=== PATIENT | female | born 1965 | race Caucasian/White ===

== ENCOUNTER 2020-03-21 09:53 | Outpatient (CLI) | payer OTHER, SELFPAY ==
[2020-03-21 10:31] LABS: Microalbumin Urine Random 8.1 mg/L
[2020-03-21 11:20] LABS: Alanine Aminotransferase 36 U/L (14-59); Albumin Level 3.6 g/dL (3.4-5.0); Alkaline Phosphatase 90 U/L (46-116); Anion Gap 15.5 mmol/L (7-16); Aspartate Amino Transferase 21 U/L (15-37); Bilirubin,Total 0.2 mg/dL (0.00-1.00); Blood Urea Nitrogen 14 mg/dL (7-18); Calcium 8.9 mg/dL (8.5-10.1); Carbon Dioxide 26 mmol/L (21-32); Chloride 101 mmol/L (98-108); Cholesterol 184 mg/dL (0-200); Estimated Glomerular Filt Rate > 60; Free T4 Free Thyroxine 0.98 ng/dL (0.76-1.46); Glucose 292 mg/dL (70-99); HDL Direct 34 mg/dL (40-60); LDL Cholesterol Calculated 76 mg/dL (<130); Osmolality Calculated 297 mOsm/kg (285-295); Potassium 4.5 mmol/L (3.5-5.1); Sodium 138 mmol/L (136-145); Thyroid Stimulating Hormone 2.42 uIU/mL (0.36-3.74); Total Protein 7.2 g/dL (6.4-8.2); Triglycerides 368 mg/dL (0-150)
== END 2020-03-21 09:54 | disposition home or self-care (01) ==
LOC: CHSLAB 09:56
PROVIDERS: PCP Internal Medicine; Visit Provider Physician Assistant
DX: E04.2 Nontoxic multinodular goiter (principal); E78.5 Hyperlipidemia, unspecified; E11.65 Type 2 diabetes mellitus with hyperglycemia
CPT/HCPCS: 36415; 80053; 80061; 82043; 84439; 84443

== ENCOUNTER 2020-07-28 07:48 | Outpatient (CLI) | payer OTHER, SELFPAY ==
[2020-07-28 08:21] LABS: Basophils Absolute Auto 0.03 K/mm3 (0.00-0.10); Basophils Percent Auto 0.4 % (0.0-1.0); Eosinophils Percent Auto 1.2 % (1.0-6.0); Hematocrit 45.3 % (35.0-49.0); Hemoglobin 14.3 g/dL (12.0-15.0); Immature Granulocyte Absolute 0.04 K/mm3 (0.00-0.00); Immature Granulocyte Percent A 0.5 % (0.0-0.0); Lymphocytes Absolute Auto 2.57 K/mm3 (1.10-4.50); Lymphocytes Percent Auto 30.7 % (18.0-42.0); Mean Corpuscular HGB Conc 31.6 g/dL (32.0-36.0); Mean Corpuscular Hemoglobin 25.2 pg (27.0-31.0); Mean Corpuscular Volume 79.8 fL (78.0-102.0); Mean Platelet Volume 10.3 fl (9.2-11.8); Monocytes Absolute Auto 0.45 K/mm3 (0.10-0.90); Monocytes Percent Auto 5.4 % (2.0-11.0); Neutrophils Absolute Auto 5.2 K/mm3 (1.7-7.2); Neutrophils Percent Auto 61.8 % (50.0-70.0); Platelet Count Result 262 K/mm3 (150-420); Red Blood Count 5.68 M/mm3 (4.20-5.40); Red Cell Distribution Width 14.9 % (11.6-14.4); White Blood Count 8.4 K/mm3 (4.8-10.8)
[2020-07-28 09:12] LABS: CRP 1.4 mg/dL (0.0-0.9); Free T4 Free Thyroxine 0.98 ng/dL (0.76-1.46); Thyroid Stimulating Hormone 1.73 uIU/mL (0.36-3.74)
[2020-07-31 04:00] LABS: Methylmalonic Acid 277 nmol/L (87-318)
[2020-07-31 07:44] LABS: Red Blood Cell Folate 800 ng/mL RBC (>280)
== END 2020-07-28 07:49 | disposition home or self-care (01) ==
LOC: CHSLAB 07:49
PROVIDERS: Physician Assistant; PCP Internal Medicine; Visit Provider Internal Medicine
DX: R53.83 Other fatigue (principal); E53.8 Deficiency of other specified B group vitamins; E04.2 Nontoxic multinodular goiter
CPT/HCPCS: 36415; 82747; 83921; 84439; 84443; 84481; 85025; 86140

== ENCOUNTER 2020-09-15 07:10 | Outpatient (CLI) | payer OTHER, SELFPAY ==
--- NOTE | ~2020-09-15 | MM_ITS ---
EXAMINATION: MM screening [facility] BI w silvia HISTORY: Screening mammogram, family history of breast cancer in her sister. TECHNIQUE: Craniocaudal and mediolateral oblique 3-D tomosynthesis images were obtained and synthetic 2-D images were generated. CAD analysis was submitted and interpreted. COMPARISON: 09/14/2019, 09/12/2018, 08/30/2017 BREAST PARENCHYMAL COMPOSITION: There are scattered areas of fibroglandular density. FINDINGS: Stable focal asymmetry is again noted in the upper outer quadrant of the right breast. Ther e is no evidence of suspicious mass, calcification, or architectural distortion to suggest malignancy in either breast. There has been no suspicious interval change. IMPRESSION: 1. No mammographic evidence of malignancy. 2. Recommend routine screening mammography in one year. BI-RADS Category 2: Benign finding(s). Reviewed, dictated and finalized at location A.
== END 2020-09-15 07:11 | disposition home or self-care (01) ==
LOC: CHSIMG 07:12
PROVIDERS: PCP Internal Medicine; Visit Provider Obstetrics & Gynecology
DX: Z12.31 Encounter for screening mammogram for malignant neoplasm of breast (principal)
CPT/HCPCS: 77063; 77067

== ENCOUNTER 2020-10-21 01:18 | Emergency (ER) | payer OTHER, SELFPAY ==
[2020-10-21 01:36] VITALS: BP 143/85; PULSE 97; RESP 18; TEMP 36.8; O2SAT 98
--- NOTE | 2020-10-21 01:36 | ED.BACK ---
HPI - Back Pain/Injury General Chief Complaint: Upper Respiratory Infection Stated Complaint: Headache, nausea Source: patient Mode of arrival: ambulatory Limitations: no limitations History of Present Illness HPI Narrative: this is a 54-year-old female presents with some body aches currently afebrile with no shortness of breath no cough was nauseated currently not nauseated has a mild headache with no neck stiffness no chest pain no shortness of breath no abdominal pain no diarrhea constipation. Recently exposed to a COVID positive patients but approximately 3 days ago had a rapid COVID which was negative. Onset (ago): day(s) Timing: intermittent Similar Symptoms Previously: No Quality: aching Related Data Home Medications Medication Instructions Recorded Confirmed esomeprazole magnesium 40 mg 40 mg PO DAILY 03/16/20 07/18/20 capsule,delayed release dapagliflozin [Farxiga] 10 mg PO DAILY 10/21/20 10/21/20 dulaglutide [Trulicity] 1.5 mg SUBCUT WEEKLY 10/21/20 10/21/20 duloxetine 20 mg PO BID 10/21/20 10/21/20 famotidine 40 mg PO HS 10/21/20 10/21/20 glipizide 10 mg PO BID 10/21/20 10/21/20 Allergies Allergy/AdvReac Type Severity Reaction Status Date / Time iodine Allergy Unknown HIVES Unverified 08/27/14 08:59 Contrast Media Allergy Unknown HIVES/RASH Uncoded 08/27/14 08:59 Review of Systems Review of Systems: All systems reviewed & are unremarkable except as noted in HPI and below PMFSH Past Medical History Medical History (Updated 10/21/20 @ 02:55 by Kimani Nevarez MD) Anxiety Cholecystectomy planned Surgical History Surgical History History of appendectomy Family History Family History Other Diabetes mellitus Family history of chronic obstructive pulmonary disease Family history of congestive heart failure Family history of genitourinary disease Family history of lung disease Family history of mental disorder Social History Social History Smoking status: Never smoker Alcohol intake: never Exam Const: General: no acute distress HENMT: Head: normal to inspection Eyes: Conjunctivae: conjunctivae normal Pupils: Equal, round and reactive pupils present EOM: EOMs intact bilaterally Neck: Neck: normal visual inspection Chest: Chest palpation & inspection: normal inspection of the chest Cardio: Rate: regular rate Rhythm: regular rhythm GI: GI Palp: Yes Soft to palpation : General: Yes no CVA tenderness Urinary Catheter: Urinary Catheter: patent and draining Back/Spine/Pelvis: Back: no CVA tenderness Skin: General skin exam: normal color Rashes: no rashes Psych: Mental Status: mental status grossly normal Course Course Emergency Course: Patient given Toradol and labs reviewed with patient and advised to self isolate. Critical Care Time Critical Care Time Critical Care Time: No Discharge Plan Discharge Clinical Impression: Viral infection Patient Disposition: Home, Self-Care Condition: Stable Instructions: Antibiotic Form, Viral Syndrome (ED) Additional Instructions: drink plenty of fluids, take Tylenol or Motrin for body aches, rest stay home self isolate and follow-up primary care physician if symptoms persist or worsen. Prescriptions: No Action glipizide 10 mg tablet extended release 24hr 10 mg PO BID RF: 0 famotidine 20 mg tablet 40 mg PO HS RF: 0 duloxetine 20 mg capsule,delayed release(DR/EC) 20 mg PO BID RF: 0 Farxiga 10 mg tablet 10 mg PO DAILY RF: 0 Trulicity 1.5 mg/0.5 mL pen injector 1.5 mg SUBCUT WEEKLY RF: 0 glipizide 10 mg tablet extended release 24hr 10 mg PO BID 90 Days Qty: 180 RF: 1 (DME) lancets [Accu-Chek Fastclix Lancet Drum] Misc See Rx Instructions .ROUTE .MEDSUPPLY Qty: 200 RF: 3 esomeprazole magne
[2020-10-21] MEDS: KETOROLAC (*BKC) 60 MG/2 ML VIAL IM (01:58)
[2020-10-21 02:07] LABS: Basophils Absolute Auto 0.01 K/mm3 (0.00-0.10); Basophils Percent Auto 0.2 % (0.0-1.0); Eosinophils Absolute Auto 0.04 K/mm3 (0.02-0.50); Eosinophils Percent Auto 0.9 % (1.0-6.0); Hematocrit 43.7 % (35.0-49.0); Immature Granulocyte Absolute 0.06 K/mm3 (0.00-0.00); Immature Granulocyte Percent A 1.3 % (0.0-0.0); Lymphocytes Absolute Auto 1.47 K/mm3 (1.10-4.50); Mean Corpuscular Hemoglobin 25.5 pg (27.0-31.0); Mean Corpuscular Volume 79.7 fL (78.0-102.0); Mean Platelet Volume 10.1 fl (9.2-11.8); Monocytes Absolute Auto 0.55 K/mm3 (0.10-0.90); Neutrophils Absolute Auto 2.5 K/mm3 (1.7-7.2); Neutrophils Percent Auto 53.6 % (50.0-70.0); Platelet Count Result 194 K/mm3 (150-420); Red Blood Count 5.48 M/mm3 (4.20-5.40); Red Cell Distribution Width 14.7 % (11.6-14.4); White Blood Count 4.6 K/mm3 (4.8-10.8)
[2020-10-21 02:18] LABS: Alanine Aminotransferase 45 U/L (14-59); Albumin Level 3.6 g/dL (3.4-5.0); Alkaline Phosphatase 103 U/L (46-116); Anion Gap 11 mmol/L (8-16); Aspartate Amino Transferase 31 U/L (15-37); Bilirubin,Total 0.3 mg/dL (0.00-1.00); Blood Urea Nitrogen 15 mg/dL (7-18); Calcium 8.7 mg/dL (8.5-10.1); Carbon Dioxide 24 mmol/L (21-32); Chloride 103 mmol/L (98-108); Estimated CRCL calculation 80 ml/min; Estimated Glomerular Filt Rate > 60; Glucose 168 mg/dL (70-99); Osmolality Calculated 290 mOsm/kg (285-295); Sodium 138 mmol/L (136-145); Total Protein 7.8 g/dL (6.4-8.2)
[2020-10-21 02:23] LABS: Influenza Control Valid (Valid)
[2020-10-21 02:57] VITALS: BP 131/79; PULSE 97; RESP 20; TEMP 37.3; O2SAT 98
[2020-10-22 12:35] LABS: SARS-CoV-2 RNA PCR Positive
== END 2020-10-21 03:10 | disposition home or self-care (01) ==
PROVIDERS: Emergency Provider Emergency Medicine; PCP Internal Medicine
DX: U07.1 COVID-19 (principal)
CPT/HCPCS: 80053; 85025; 87635; 87804; 96372; 99283; C9803; J1885; U0003

== ENCOUNTER 2020-11-03 07:29 | Outpatient (CLI) | payer OTHER, SELFPAY ==
--- NOTE | ~2020-11-03 | US_ITS ---
EXAMINATION: US thyroid DATE: 11/03/2020 11:09 INDICATION: Nontoxic multinodular goiter. TECHNIQUE: Multiple ultrasound images of the thyroid were obtained. COMPARISON: Ultrasound 08/25/2019, 10/23/16 FINDINGS: The right thyroid lobe measures 4.6 x 1.6 x 1.7 cm. The left thyroid lobe measures 4.6 x 1.6 x 1.4 c m. In the right thyroid lobe, there is a 15 mm predominantly solid, hyperechoic, uetde-iphc-fuer nod ule with ill-defined margin without echogenic foci (TI-RADS TR3), stable from 10/23/16. In the left th yroid lobe, there is a 1.3 cm solid, hyperechoic, tazaz-gamv-zlqy nodule with ill-defined margin with out echogenic foci (TR3), stable from 10/23/16. Again seen are multiple subcentimeter thyroid nodules measuring up to 8 mm (TR4). IMPRESSION: 1. Stable multinodular goiter, likely not clinically significant. No follow-up is needed. Reviewed, dictated and finalized at location A. 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
== END 2020-11-03 07:30 | disposition home or self-care (01) ==
LOC: CHSIMG 07:31
PROVIDERS: PCP Internal Medicine; Visit Provider Physician Assistant
DX: E04.2 Nontoxic multinodular goiter (principal); E78.5 Hyperlipidemia, unspecified; E11.65 Type 2 diabetes mellitus with hyperglycemia
CPT/HCPCS: 76536

== ENCOUNTER 2020-11-05 06:37 | Outpatient (CLI) | payer OTHER, SELFPAY ==
[2020-11-05 08:17] LABS: Hemoglobin A1C 10.1 % (<5.7)
[2020-11-05 08:24] LABS: Cholesterol 139 mg/dL (0-200); HDL Direct 24 mg/dL (40-60); LDL Cholesterol Calculated 28 mg/dL (<130); Triglycerides 434 mg/dL (0-150)
[2020-11-05 08:27] LABS: LDL Cholesterol Direct 60 mg/dL (0-130)
== END 2020-11-05 06:38 | disposition home or self-care (01) ==
PROVIDERS: PCP Internal Medicine; Visit Provider Physician Assistant
DX: E78.5 Hyperlipidemia, unspecified (principal); E11.65 Type 2 diabetes mellitus with hyperglycemia; E04.2 Nontoxic multinodular goiter
CPT/HCPCS: 36415; 80061; 83036; 83721

== ENCOUNTER 2021-05-17 07:49 | Outpatient (CLI) | payer OTHER, SELFPAY ==
--- NOTE | ~2021-05-17 | US_ITS ---
EXAMINATION: US pelvic complete w TV DATE: 05/17/2021 08:39 INDICATION: Malignant neoplasm of ovary. TECHNIQUE: Multiple transabdominal and transvaginal sonographic images of the pelvis were obtained. COMPARISON: Ultrasound 07/02/2019 FINDINGS: TRANSABDOMINAL ULTRASOUND: The uterus is absent. There is no free fluid in the pelvis. TRANSVAGINAL ULTRASOUND: The right ovary measures 0.8 x 1.1 x 0.9 cm. The left ovary measures 1.5 x 0.8 x 1.4 cm. There is nor mal vascular flow in the ovaries. IMPRESSION: 1. Normal ovaries. 2. Hysterectomy. Reviewed, dictated and finalized at location A.
== END 2021-05-17 07:50 | disposition home or self-care (01) ==
LOC: CHSIMG 07:51
PROVIDERS: PCP Internal Medicine; Visit Provider Obstetrics & Gynecology
DX: Z80.41 Family history of malignant neoplasm of ovary (principal)
CPT/HCPCS: 76830; 76856

== ENCOUNTER 2021-07-05 08:15 | Outpatient (CLI) | payer OTHER, SELFPAY ==
[2021-07-05 08:42] LABS: Creatinine Urine 94.67 mg/dL (40-278); MALB Creatinine Ratio 13.7 mg/g (0-30); Microalbumin Urine Random < 13.0 mg/L
[2021-07-05 09:29] LABS: Anion Gap 8 mmol/L (8-16); Blood Urea Nitrogen 14 mg/dL (7-18); Carbon Dioxide 29 mmol/L (21-32); Chloride 104 mmol/L (98-108); Cholesterol 168 mg/dL (0-200); Estimated Glomerular Filt Rate > 60; Glucose 145 mg/dL (70-99); HDL Direct 40 mg/dL (40-60); LDL Cholesterol Calculated 76 mg/dL (<130); Osmolality Calculated 295 mOsm/kg (285-295); Potassium 4.7 mmol/L (3.5-5.1); Sodium 141 mmol/L (136-145); Thyroid Stimulating Hormone 2.48 uIU/mL (0.36-3.74); Triglycerides 261 mg/dL (0-150)
[2021-07-09 07:34] LABS: Thyroid Peroxidase Antibodies <1 IU/mL (<9)
== END 2021-07-05 08:16 | disposition home or self-care (01) ==
LOC: CHSLAB 08:17
PROVIDERS: PCP Internal Medicine; Visit Provider Internal Medicine Endocrinology, Diabetes & Metabolism
DX: E11.65 Type 2 diabetes mellitus with hyperglycemia (principal); E04.2 Nontoxic multinodular goiter; E78.1 Pure hyperglyceridemia; Z71.3 Dietary counseling and surveillance
CPT/HCPCS: 36415; 80048; 80061; 82043; 84443; 86376

== ENCOUNTER 2021-09-18 06:59 | Outpatient (CLI) | payer OTHER, SELFPAY ==
--- NOTE | ~2021-09-18 | MM_ITS ---
EXAMINATION: MM screening [facility] BI w silvia HISTORY: Screening TECHNIQUE: Craniocaudal and mediolateral oblique 3-D tomosynthesis images were obtained and synthetic 2-D images were generated. CAD analysis was submitted and interpreted. COMPARISON: Comparison to multiple prior studies sequentially, with oldest reviewed study dated 11/2014. BREAST PARENCHYMAL COMPOSITION: There are scattered areas of fibroglandular density. FINDINGS: There is no evidence of suspicious mass, calcification, or architectural distortion to sugg est malignancy in either breast. There has been no suspicious interval change. IMPRESSION: 1. No mammographic evidence of malignancy. 2. Recommend routine screening mammography in one year. BI-RADS Category 1: Negative Reviewed, dictated and finalized at location A.
== END 2021-09-18 07:00 | disposition home or self-care (01) ==
LOC: CHSIMG 07:02
PROVIDERS: PCP Internal Medicine; Visit Provider Obstetrics & Gynecology
DX: Z12.31 Encounter for screening mammogram for malignant neoplasm of breast (principal)
CPT/HCPCS: 77063; 77067

== ENCOUNTER 2021-10-07 08:38 | Outpatient (CLI) | payer OTHER, SELFPAY ==
[2021-10-07 09:31] LABS: Hemoglobin A1C 8.7 % (<5.7)
[2021-10-07 09:42] LABS: Cholesterol 176 mg/dL (0-200); Glucose 168 mg/dL (70-99); HDL Direct 36 mg/dL (40-60); LDL Cholesterol Calculated 69 mg/dL (<130); Triglycerides 353 mg/dL (0-150)
== END 2021-10-07 08:39 | disposition home or self-care (01) ==
LOC: CHSLAB 08:41
PROVIDERS: PCP Internal Medicine; Visit Provider Internal Medicine Endocrinology, Diabetes & Metabolism
DX: E11.65 Type 2 diabetes mellitus with hyperglycemia (principal); E04.2 Nontoxic multinodular goiter
CPT/HCPCS: 36415; 80061; 82947; 83036

== ENCOUNTER 2022-04-03 07:45 | Outpatient (CLI) | payer OTHER, SELFPAY ==
[2022-04-03 08:13] LABS: Creatinine Urine 176.26 mg/dL (40-278); MALB Creatinine Ratio 10.4 mg/g (0-30); Microalbumin Urine Random 18.4 mg/L
[2022-04-03 08:22] LABS: Anion Gap 4 mmol/L (8-16); Blood Urea Nitrogen 17 mg/dL (7-18); Calcium 8.7 mg/dL (8.5-10.1); Carbon Dioxide 31 mmol/L (21-32); Chloride 102 mmol/L (98-108); Cholesterol 89 mg/dL (0-200); Estimated Glomerular Filt Rate > 60; Glucose 135 mg/dL (70-99); HDL Direct 36 mg/dL (40-60); LDL Cholesterol Calculated 21 mg/dL (<130); Osmolality Calculated 287 mOsm/kg (285-295); Sodium 137 mmol/L (136-145); Thyroid Stimulating Hormone 3.08 uIU/mL (0.36-3.74); Triglycerides 159 mg/dL (0-150)
== END 2022-04-03 07:46 | disposition home or self-care (01) ==
PROVIDERS: PCP Internal Medicine; Visit Provider Internal Medicine Endocrinology, Diabetes & Metabolism
DX: E04.2 Nontoxic multinodular goiter (principal); E11.65 Type 2 diabetes mellitus with hyperglycemia; E78.5 Hyperlipidemia, unspecified
CPT/HCPCS: 36415; 80048; 80061; 82043; 84443

== ENCOUNTER 2022-05-23 11:08 | Outpatient (CLI) | payer OTHER, SELFPAY ==
--- NOTE | ~2022-05-23 | XR_ITS ---
EXAM: XR shoulder RT min 2V DATE: 05/23/2022 11:35 HISTORY: RT posterior scapular/shoulder pain with movement . COMPARISON: None available. FINDINGS: Slightly decreased mineralization. No fracture or dislocation. No lytic or blastic lesion. Lateral downsloping of the acromion with undersurface remodeling. Mild AC joint and glenohumeral karin nt osteoarthritis. Calcification over the left tuberosity. No erosion or periosteal change. Soft tiss ues within normal limits. IMPRESSION: Mild AC joint and glenohumeral joint osteoarthritis. Calcific tendinitis of the supraspin atus. Possible osseous outlet compromise. Reviewed, dictated and finalized at location K. IMPRESSION: Mild AC joint and glenohumeral joint osteoarthritis. Calcific tendi nitis of the supraspinatus. Possible osseous outlet compromise.
--- NOTE | ~2022-05-23 | XR_ITS ---
EXAMINATION:XR_[id number]_CR DATE: 05/23/2022 11:35 INDICATION: Right shoulder and neck pain TECHNIQUE: AP, lateral, and odontoid views of the cervical spine are provided. COMPARISON: None FINDINGS: And the lower cervical spine is obscured by the shoulders on the lateral view. Alignment is normal. The odontoid is intact. No fracture is identified. The vertebral body heights are normal. Th ere is mild loss of intervertebral disc space height at C5-6. Small degenerative osteophytes project from the anterior endplates of multiple vertebral bodies. There is moderate multilevel facet and unco vertebral joint osteoarthritis. Prevertebral soft tissues are normal. IMPRESSION: 1. Mild cervical spondylosis without acute findings. Reviewed, dictated and finalized at location B.
[2022-05-23 11:30] LABS: Basophils Absolute Auto 0.04 K/mm3 (0.00-0.10); Basophils Percent Auto 0.4 % (0.0-1.0); Eosinophils Absolute Auto 0.28 K/mm3 (0.02-0.50); Eosinophils Percent Auto 2.8 % (1.0-6.0); Hematocrit 44.8 % (35.0-49.0); Hemoglobin 14.3 g/dL (12.0-15.0); Immature Granulocyte Absolute 0.05 K/mm3 (0.00-0.00); Immature Granulocyte Percent A 0.5 % (0.0-0.0); Lymphocytes Absolute Auto 2.74 K/mm3 (1.10-4.50); Lymphocytes Percent Auto 26.9 % (18.0-42.0); Mean Corpuscular HGB Conc 31.9 g/dL (32.0-36.0); Mean Corpuscular Volume 78.5 fL (78.0-102.0); Mean Platelet Volume 10.3 fl (9.2-11.8); Monocytes Percent Auto 5.9 % (2.0-11.0); Neutrophils Absolute Auto 6.5 K/mm3 (1.7-7.2); Neutrophils Percent Auto 63.5 % (50.0-70.0); Platelet Count Result 242 K/mm3 (150-420); Red Blood Count 5.71 M/mm3 (4.20-5.40); Red Cell Distribution Width 14.7 % (11.6-14.4); White Blood Count 10.2 K/mm3 (4.8-10.8)
[2022-05-23 11:38] LABS: CRP 1.2 mg/dL (0.0-0.9)
== END 2022-05-23 11:09 | disposition home or self-care (01) ==
LOC: CHSIMG 11:10
PROVIDERS: PCP Internal Medicine; Visit Provider Internal Medicine
DX: M25.511 Pain in right shoulder (principal); D64.9 Anemia, unspecified
CPT/HCPCS: 36415; 72040; 73030; 85025; 86140

== ENCOUNTER 2022-07-09 07:16 | Outpatient (CLI) | payer OTHER, SELFPAY ==
--- NOTE | ~2022-07-09 | US_ITS ---
EXAMINATION: US pelvic complete w TV DATE: 07/09/2022 08:21 INDICATION: Vaginal bleeding, status post hysterectomy, family history of ovarian cancer TECHNIQUE: Multiple transabdominal and endovaginal sonographic images of the pelvis were obtained. COMPARISON: 05/17/2021 FINDINGS: The uterus is surgically absent. The right ovary measures 1.6 x 1.6 x 1.6 cm and contains s mall simple cysts. The left ovary measures 1.8 x 2.0 x 1.4 cm and contains small simple cysts. There is normal vascular flow in the ovaries. There is no free fluid in the pelvis. IMPRESSION: 1. No sonographic correlate for the patient's symptoms. Reviewed, dictated and finalized at location B.
== END 2022-07-09 07:17 | disposition home or self-care (01) ==
LOC: CHSIMG 07:19
PROVIDERS: PCP Internal Medicine; Visit Provider Obstetrics & Gynecology
DX: Z80.41 Family history of malignant neoplasm of ovary (principal)
CPT/HCPCS: 76830; 76856

== ENCOUNTER 2022-08-24 08:58 | Outpatient (CLI) | payer OTHER, SELFPAY ==
--- NOTE | ~2022-08-24 | XR_ITS ---
EXAMINATION: XR lg joint inject/asp w image DATE: 08/24/2022 09:50 INDICATION: Frozen right shoulder. TECHNIQUE: A time-out was performed to verify the patient's name, date of , and procedure to b e performed. The procedure including the risks, benefits, and alternatives was discussed with the pat ient. Risks discussed included bleeding and infection. The patient understood the risks and agreed to proceed. The skin overlying the right glenohumeral joint was prepped and draped in usual sterile fa shion. Anesthetic was administered with 1% lidocaine subcutaneously. A 22 G needle was advanced und er fluoroscopic guidance into the joint. Subsequently, injectate consisting of 4 mL 1% lidocaine and 2 mL 40 mg/mL Depo-Medrol was instilled. The needle was removed and the entry site was cleaned and dressed. There were no immediate complications. Fluoroscopy exposure time was 0.1 minutes. The total number of images was 1. FINDINGS: Real-time fluoroscopy demonstrates the needle in the right glenohumeral joint. Patient's pa in prior to procedure:0/10. IMPRESSION: 1. Fluoroscopy guided right glenohumeral joint injection of local anesthetic and steroid. Reviewed, dictated and finalized at location B. IMPRESSION: 1. Fluoroscopy guided right glenohumeral joint injection of local anesthetic an d steroid.
== END 2022-08-24 08:59 | disposition home or self-care (01) ==
LOC: CHSIMG 09:00
PROVIDERS: PCP Internal Medicine; Visit Provider Orthopaedic Surgery
DX: M75.01 Adhesive capsulitis of right shoulder (principal)
CPT/HCPCS: 20610; 77002; J1030

== ENCOUNTER 2022-08-31 07:57 | Outpatient (RCR) | payer OTHER, SELFPAY ==
--- NOTE | 2022-08-31 08:05 | PTOPEVAL1 ---
Assessment and note entered by Carolin Hopper DPT Evaluation Information Assessment Status Evaluation Diagnosis R frozen shoulder Onset 02/16/2022 Subjective Information Pt reports that pain started around February of this year with insidious onset. She has had frozen shoulder of her L shoulder in the past, so she could tell that this was similar, however, she notes that this shoulder hurts more than her last one. She gets pain in the back of her shoulder blade mostly, as well as in her shoulder and arm. She reports difficulty with grooming/dressing such as when fixing her hair or taking her coat off. Notes difficulty mostly with activities at end range. When not moving her shoulder, she has no pain. Denies numbness/tingling. She reports that she has been having difficulty with sleeping. She has been monitoring her diabetes more closely. Pt reports that she had an injection last week which seems to help. She has a follow up with her MD in September. Reported Pain Level Pain Score 1: Self Report Assessment PT Clinical Summary Pt presents to PT with R shoulder pain, decreased range of motion in a capsular pattern, and altered posture and demonstrates signs and symptoms consistent with R shoulder adhesive capsulitis. Her current deficits make it more difficult for her to perform household activities at end ranges and complete grooming tasks such as doing her hair or getting dressed. She was provided with an HEP focused on improving range of motion and mobility within her tolerance. She will benefit from skilled PT to facilitate symptom relief, improve the aforementioned impairments, and return to functional and recreational activities. Plan of Care Interventions Electrical Stimulation,Hot Pack/Cold Pack,Manual Therapy,Patient/Caregiver Educati,Therapeutic Activities,Therapeutic Exercise PT Services Indicated Yes Treatment Frequency and 2x week for 4 weeks Duration These treatments will address the objective and functional deficits as defined above. The patient will be advanced safely and appropriately in order for the patient to progress towards his/her prior level of function. Additional exercises will be introduced and as well as a comprehensive home exercise program upon discharge, if needed, ?to ensure carryover of functional gains achieved in the clinic. This treatment plan has been reviewed and agreement upon by the patient.
== END 2022-10-10 16:19 | disposition home or self-care (01) ==
LOC: CHSPT 07:57
PROVIDERS: Visit Provider Orthopaedic Surgery
DX: M75.01 Adhesive capsulitis of right shoulder (principal)
CPT/HCPCS: 97014; 97110; 97161; G0283

== ENCOUNTER 2022-09-20 07:19 | Outpatient (CLI) | payer OTHER, SELFPAY ==
--- NOTE | ~2022-09-20 | MM_ITS ---
EXAMINATION: MM screening [facility] BI w silvia HISTORY: Screening TECHNIQUE: Craniocaudal and mediolateral oblique 3-D tomosynthesis images were obtained and synthetic 2-D images were generated. CAD analysis was submitted and interpreted. COMPARISON: Comparison to multiple prior studies sequentially, with oldest reviewed study dated 07/16. BREAST PARENCHYMAL COMPOSITION: Breast composed of scattered areas of fibroglandular density FINDINGS: There is no evidence of suspicious mass, calcification, or architectural distortion to sugg est malignancy in either breast. There has been no suspicious interval change. IMPRESSION: 1. No mammographic evidence of malignancy. 2. Recommend routine screening mammography in one year. BI-RADS Category 1: Negative Reviewed, dictated and finalized at location A.
== END 2022-09-20 07:20 | disposition home or self-care (01) ==
LOC: CHSIMG 07:20
PROVIDERS: PCP Internal Medicine; Visit Provider Obstetrics & Gynecology
DX: Z12.31 Encounter for screening mammogram for malignant neoplasm of breast (principal)
CPT/HCPCS: 77063; 77067

== ENCOUNTER 2023-01-24 10:22 | Outpatient (CLI) | payer OTHER, SELFPAY ==
--- NOTE | ~2023-01-24 | US_ITS ---
EXAMINATION: US thyroid DATE: 01/24/2023 14:57 INDICATION: Thyroid nodules TECHNIQUE: Multiple ultrasound images of the thyroid were obtained. COMPARISON: 11/03/20 FINDINGS: The right thyroid lobe measures 2.8 x 1.7 x 2.0 cm. The left thyroid lobe measures 4.3 x 1.7 x 1.7 c m. Thyroid isthmus measures 7 mm in maximal thickness. There are bilateral thyroid nodules. These inc lude a 1.4 cm wider than tall solid isoechoic nodule with smooth margins and without echogenic foci i n the left thyroid lobe (TI-RADS 3, mildly suspicious , FNA if >=2.5 cm, annual followup is >=1.5 cm) which is without significant interval change. Also without significant interval change is a 1.5 cm p redominantly solid and isoechoic wider than tall nodule with ill-defined margins in the right thyroid lobe, also TI RADS 3. 7 mm wider than tall solid very hypoechoic nodule with smooth margins and with out echogenic foci in the right thyroid lobe (TI-RADS 4, moderately suspicious , FNA if >=1.5 cm, chelle ual followup is >=1 cm). IMPRESSION: 1. Multinodular goiter without significant interval change. Recommend one-year follow-up for the 1.5 cm TI RADS 3 nodule. Reviewed, dictated and finalized at location A. 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
== END 2023-01-24 10:23 | disposition home or self-care (01) ==
LOC: CHSIMG 10:26
PROVIDERS: PCP Internal Medicine; Visit Provider Internal Medicine Endocrinology, Diabetes & Metabolism
DX: E04.2 Nontoxic multinodular goiter (principal)
CPT/HCPCS: 76536

== ENCOUNTER 2023-05-01 17:02 | Outpatient (CLI) | payer OTHER, SELFPAY ==
[2023-05-02 13:50] LABS: Creatinine Urine 229.76 mg/dL (40-278); Microalbumin Urine Random 13.8 mg/L
[2023-05-02 13:52] LABS: Anion Gap 8 mmol/L (8-16); Blood Urea Nitrogen 14 mg/dL (7-18); Carbon Dioxide 29 mmol/L (21-32); Chloride 104 mmol/L (98-108); Estimated Glomerular Filt Rate > 60; Potassium 4.3 mmol/L (3.5-5.1); Sodium 141 mmol/L (136-145)
[2023-05-02 13:53] LABS: Alanine Aminotransferase 46 U/L (14-59); Albumin Level 3.5 g/dL (3.4-5.0); Aspartate Amino Transferase 19 U/L (15-37); Bilirubin,Total 0.3 mg/dL (0.00-1.00); Calcium 8.8 mg/dL (8.5-10.1); Glucose 102 mg/dL (70-99); Iron 46 ug/dL (50-170); Osmolality Calculated 292 mOsm/kg (285-295); Percent Iron Saturation 14 % (12-57); Triglycerides 121 mg/dL (0-150)
[2023-05-02 13:54] LABS: Alkaline Phosphatase 97 U/L (46-116); Cholesterol 91 mg/dL (0-200); HDL Direct 43 mg/dL (40-60); LDL Cholesterol Calculated 24 mg/dL (<130); Thyroid Stimulating Hormone 2.97 uIU/mL (0.36-3.74); Vitamin B12 779 pg/mL (193-986)
[2023-05-07 23:53] LABS: Vitamin D 25 Hydroxy 40 ng/mL (30-100)
[2023-05-08 09:10] LABS: Transferrin 272 mg/dL (188-341)
== END 2023-05-01 17:03 | disposition home or self-care (01) ==
LOC: CHSLAB 17:03
PROVIDERS: PCP Internal Medicine; Visit Provider Internal Medicine Endocrinology, Diabetes & Metabolism
DX: E04.1 Nontoxic single thyroid nodule (principal); E78.5 Hyperlipidemia, unspecified; R79.89 Other specified abnormal findings of blood chemistry; Z71.3 Dietary counseling and surveillance; E61.1 Iron deficiency; E11.65 Type 2 diabetes mellitus with hyperglycemia
CPT/HCPCS: 36415; 80053; 80061; 82043; 82306; 82607; 83540; 83550; 84439; 84443; 84466

== ENCOUNTER 2023-09-26 07:11 | Outpatient (CLI) | payer OTHER, SELFPAY ==
--- NOTE | ~2023-09-26 | MM_ITS ---
EXAMINATION: MM screening [facility] BI w silvia HISTORY: Screening TECHNIQUE: Craniocaudal and mediolateral oblique 3-D tomosynthesis images were obtained and synthetic 2-D images were generated. CAD analysis was submitted and interpreted. COMPARISON: Comparison to multiple prior studies sequentially, with oldest reviewed study dated 08/18. BREAST PARENCHYMAL COMPOSITION: Breast composed of scattered areas of fibroglandular density FINDINGS: Stable asymmetries in the upper outer quadrant of the right breast.. There is no evidence o f suspicious mass, calcification, or architectural distortion to suggest malignancy in either breast. There has been no suspicious interval change. IMPRESSION: 1. No mammographic evidence of malignancy. 2. Recommend routine screening mammography in one year. BI-RADS Category 1: Negative Reviewed, dictated and finalized at location A. 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
== END 2023-09-26 07:12 | disposition home or self-care (01) ==
LOC: CHSIMG 07:13
PROVIDERS: PCP Internal Medicine; Visit Provider Obstetrics & Gynecology
DX: Z12.31 Encounter for screening mammogram for malignant neoplasm of breast (principal)
CPT/HCPCS: 77063; 77067

== ENCOUNTER 2023-10-17 02:30 | Day surgery (SDC) | payer OTHER, SELFPAY ==
[2023-10-02 14:05] VITALS: BMI 29.1
--- NOTE | 2023-10-15 12:51 | SUR.PREOP ---
Patient called regarding upcoming procedure. Message left on patient's voice mail regarding preop instructions, appointment times, and procedure prep.
[2023-10-17 07:37] VITALS: BP 127/69; PULSE 96; RESP 16; TEMP 36.6; O2SAT 98; BMI 28.7
[2023-10-17] MEDS: LACTATED RINGERS 1,000 ML 150 ML IV CONT (08:11)
[2023-10-17 08:13] LABS: Glucose Point of Care 121 mg/dl (65-105)
--- NOTE | 2023-10-17 08:41 | WPDANESEPPF ---
Anes - Initial Pre Proc Eval Procedure: Operation Date: 10/17/23 09:00 Proposed Procedures p Esophagogastroduodenoscopy & Screening Colonoscopy - Jorge Ambrose DO Date/Time: 10/17/23 08:41 Surgeon: Jorge Ambrose DO Pre Op Diagnosis: GERD, neoplasm screening Patient Data Age: 57 Gender: F Height: 1.75 m Weight: 88.2 kg Last Vital Signs Temp 97.9 F 10/17/23 07:37 Pulse 96 10/17/23 07:37 Resp 16 10/17/23 07:37 BP 127/69 10/17/23 07:37 Pulse Ox 98 10/17/23 07:37 O2 Del Method Room Air 10/17/23 07:37 Allergies Allergy/AdvReac Type Severity Reaction Status Date / Time iodine Allergy Unknown HIVES Verified 10/17/23 07:49 Contrast Media Allergy Unknown HIVES/RASH Uncoded 10/17/23 07:49 Home Medications Medication Instructions Recorded Confirmed Type esomeprazole magnesium 40 mg 40 mg PO DAILY 03/16/20 10/17/23 History capsule,delayed release lancets (Accu-Chek Fastclix Lancet #200 ea 07/18/20 10/17/23 Rx Drum) blood sugar diagnostic #200 ea 07/22/20 10/17/23 Rx blood-glucose meter #1 ea 07/22/20 10/17/23 Rx famotidine 20 mg tablet 40 mg PO HS 10/21/20 10/17/23 History vitamin [id number] B1 100 mg-1 1 ml IM WEEKLY 03/28/21 10/17/23 History mg/mL intramuscular solution blood sugar diagnostic (Accu-Chek #200 ea 07/06/21 10/17/23 Rx Guide test strips) duloxetine 20 mg capsule,delayed See Rx Instructions PO DAILY 01/08/22 10/17/23 History release lancets (Accu-Chek Softclix #200 ea 02/28/22 10/17/23 Rx Lancets) glucose 4 gram chewable tablet 16 g PO Q15M PRN hypoglycemia #60 10/22/22 10/17/23 Rx (Dex4 Glucose) tabs Ana Rosa 1 tab-cap BYMOUTH DAILY 04/30/23 10/17/23 History blood-glucose sensor (Dexcom G6 #9 ea 04/30/23 10/17/23 Rx Sensor device) blood-glucose transmitter (Dexcom #1 ea 04/30/23 10/17/23 Rx G6 Transmitter device) BD Zarina 2nd Gen Pen Needle 32 #100 ea 08/07/23 10/17/23 Rx gauge x 5/32 (pen needle, diabetic) Tresiba FlexTouch U-100 100 70 unit (0.7 mL) subcut DAILY 90 08/07/23 10/17/23 Rx unit/mL (3 mL) subcutaneous pen days #63 mL (insulin degludec) dapagliflozin propanediol 10 mg 10 mg PO DAILY 90 days #90 tabs 08/07/23 10/17/23 Rx tablet (Farxiga) glipizide 10 mg tablet, extended 10 mg PO BID 90 days #180 tabs 08/07/23 10/17/23 Rx release 24 hr semaglutide (weight loss) 2.4 See Rx Instructions .Route 10/09/23 10/17/23 Rx mg/0.75 mL subcutaneous pen .COMPLEX #9 mL injector (Wegovvero) rosuvastatin 40 mg tablet See Rx Instructions .Route 10/14/23 10/17/23 Rx .COMPLEX #90 tabs Laboratory Tests 10/17/23 07:56 POC Capillary Glucose 121 H mg/dl (65-105) Patient hx anesthesia problems: none Family hx anesthesia problems: none Results Review: All pre-operative results and documents have been reviewed as part of the pre-operative evaluation. [facility] Past Medical History Medical History Anxiety History of endometrial biopsy Hypertriglyceridemia Nontoxic multinodular goiter Type 2 diabetes mellitus with hyperglycemia Surgical History Surgical History H/O LEEP 2009 History of appendectomy History of colposcopy 2005 History of hysterectomy, supracervical Family History Family History Other Diabetes mellitus Family history of chronic obstructive pulmonary disease Family history of congestive heart failure Family history of genitourinary disease Family history of lung disease Family history of mental disorder Social History Social History Smoking status: Never smoker Alcohol intake: never Substance use: never Substance use type: does not use Living arrangements: with family Occupation/Education: occupation Gender identity (if v
--- NOTE | 2023-10-17 09:09 | PM.IMHP ---
H&P: HPI History of Present Illness Date/Time: 10/17/23 09:09 Chief Complaint: GERD, screening for colorectal cancer Narrative: This is a 57-year-old woman who presents with chronic acid reflux symptoms. She has had an EGD in the past but it has been about 10 years. She currently takes Nexium to help with her symptoms. She still gets some occasional epigastric pain or acid reflux despite being on medications. She also presents for screening colonoscopy. She denies any hematochezia or melena. She denies any family history of colon cancer. Review of Systems Review of Systems: All systems reviewed & are unremarkable except as noted in HPI and below Constitutional: Constitutional: Denies chills, Denies fever(s), Denies headache(s) and Denies weight loss Eyes: Eyes: Denies change in vision ENT: Denies dizziness, Denies headache(s), Denies neck mass and Denies throat swelling Cardiovascular: Cardiovascular: Denies chest pain, Denies lightheadedness and Denies dyspnea Respiratory: Respiratory: Denies cough, Denies dyspnea and Denies wheezing Gastrointestinal: Gastrointestinal: Denies abdominal pain, Denies change in bowel habits, Denies nausea and Denies vomiting Genitourinary: Genitourinary: Denies hematuria and Denies dysuria Musculoskeletal: Musculoskeletal: Reports as per HPI Integumentary/Breasts: Skin/Breast: Reports as per HPI Neurologic: Denies dizziness and Denies headache(s) Allergic/Immunologic: Allergic/Immunologic: Denies throat swelling and Denies wheezing PMFSH Past Medical History Medical History Anxiety History of endometrial biopsy Hypertriglyceridemia Nontoxic multinodular goiter Type 2 diabetes mellitus with hyperglycemia Surgical History Surgical History H/O LEEP 2009 History of appendectomy History of colposcopy 2005 History of hysterectomy, supracervical Family History Family History Other Diabetes mellitus Family history of chronic obstructive pulmonary disease Family history of congestive heart failure Family history of genitourinary disease Family history of lung disease Family history of mental disorder Social History Social History (Reviewed 08/07/23 @ 13:58 by Milagro Pearl [facility] [address]) Smoking status: Never smoker Alcohol intake: never Substance use: never Substance use type: does not use Living arrangements: with family Occupation/Education: occupation Gender identity (if verbalized by the patient): Female Sexual Orientation (if Verbalized by the Patient): Straight or Heterosexual Spiritual care concerns: No Meds Home Medications and Allergies Home Medications Medication Instructions Recorded Confirmed Type esomeprazole magnesium 40 mg 40 mg PO DAILY 03/16/20 10/17/23 History capsule,delayed release lancets (Accu-Chek Fastclix Lancet #200 ea 07/18/20 10/17/23 Rx Drum) blood sugar diagnostic #200 ea 07/22/20 10/17/23 Rx blood-glucose meter #1 ea 07/22/20 10/17/23 Rx famotidine 20 mg tablet 40 mg PO HS 10/21/20 10/17/23 History vitamin [id number]-[id number] B1 100 mg-1 1 ml IM WEEKLY 03/28/21 10/17/23 History mg/mL intramuscular solution blood sugar diagnostic (Accu-Chek #200 ea 07/06/21 10/17/23 Rx Guide test strips) duloxetine 20 mg capsule,delayed See Rx Instructions PO DAILY 01/08/22 10/17/23 History release lancets (Accu-Chek Softclix #200 ea 02/28/22 10/17/23 Rx Lancets) glucose 4 gram chewable tablet 16 g PO Q15M PRN hypoglycemia #60 10/22/22 10/17/23 Rx (Dex4 Glucose) tabs Ana Rosa 1 tab-cap BYMOUTH DAILY 04/30/23 10/17/23 History blood-glucose sensor (Dexcom G6 #9 ea 04/30/23 10/17/23 Rx Sensor device) blood-glucose transmitter (Dexcom #1 ea 04/30/23 10/17/23 Rx G6 Transmitter device) BD Zarina 2nd Gen Pen Needle 32 #100 ea 08/07/23
--- NOTE | 2023-10-17 09:35 | SUR.OPER ---
EGD end 928 COLONOSCOPY START 934
[2023-10-17 09:58] VITALS: BP 151/85; PULSE 80; RESP 16; O2SAT 99
[2023-10-17 10:08] VITALS: BP 149/88; PULSE 84; RESP 18; O2SAT 99
[2023-10-17 10:18] VITALS: BP 148/84; PULSE 79; RESP 17; O2SAT 98
== END 2023-10-17 10:26 | disposition home or self-care (01) ==
PROVIDERS: PCP Internal Medicine; Visit Provider Surgery
PROC: 0DJ08ZZ Inspection of Upper Intestinal Tract, Via Natural or Artificial Opening Endoscopic (ICD-10-PCS; CPT 43235; principal; 2023-10-17 09:00)
DX: Z12.11 Encounter for screening for malignant neoplasm of colon (principal); K29.30 Chronic superficial gastritis without bleeding; K31.7 Polyp of stomach and duodenum; K21.9 Gastro-esophageal reflux disease without esophagitis; E11.9 Type 2 diabetes mellitus without complications
CPT/HCPCS: 43239; 45378; 82948; 87081; 88305; J2704; J7120

== ENCOUNTER 2024-04-27 08:06 | Outpatient (CLI) | payer OTHER, SELFPAY ==
[2024-04-27 08:47] LABS: Creatinine Urine 118.16 mg/dL (40-278); Microalbumin Urine Random < 13.0 mg/L
[2024-04-27 09:24] LABS: Alanine Aminotransferase 33 U/L (14-59); Albumin Level 3.5 g/dL (3.4-5.0); Alkaline Phosphatase 82 U/L (46-116); Anion Gap 10 mmol/L (4-12); Aspartate Amino Transferase 18 U/L (15-37); Bilirubin,Total 0.3 mg/dL (0.00-1.00); Blood Urea Nitrogen 16 mg/dL (7-18); Calcium 8.7 mg/dL (8.5-10.1); Carbon Dioxide 27 mmol/L (21-32); Chloride 102 mmol/L (98-108); Cholesterol 104 mg/dL (0-200); Estimated Glomerular Filt Rate > 60; Glucose 109 mg/dL (70-99); HDL Direct 42 mg/dL (40-60); Iron 46 ug/dL (50-170); LDL Cholesterol Calculated 15 mg/dL (<130); Osmolality Calculated 290 mOsm/kg (285-295); Percent Iron Saturation 14 % (12-57); Potassium 4.1 mmol/L (3.5-5.1); Sodium 139 mmol/L (136-145); Thyroid Stimulating Hormone 2.41 uIU/mL (0.36-3.74); Total Protein 7.2 g/dL (6.4-8.2); Triglycerides 236 mg/dL (0-150); Vitamin B12 822 pg/mL (193-986)
[2024-04-29 02:48] LABS: Vitamin D 25 Hydroxy 49 ng/mL (30-100)
[2024-04-29 11:12] LABS: Transferrin 262 mg/dL (188-341)
== END 2024-04-27 08:07 | disposition home or self-care (01) ==
LOC: CHSLAB 08:07
PROVIDERS: PCP Internal Medicine; Visit Provider Internal Medicine Endocrinology, Diabetes & Metabolism
DX: E11.65 Type 2 diabetes mellitus with hyperglycemia (principal); E61.1 Iron deficiency; E78.1 Pure hyperglyceridemia; E78.5 Hyperlipidemia, unspecified; R79.89 Other specified abnormal findings of blood chemistry
CPT/HCPCS: 36415; 80053; 80061; 82043; 82306; 82607; 83540; 83550; 84443; 84466

== ENCOUNTER 2024-09-07 14:48 | Outpatient (CLI) | payer OTHER, SELFPAY ==
--- NOTE | ~2024-09-07 | XR_ITS ---
XR foot LT min 3V Ordering provider: Dora Caruso, YOUTH NUTRITIONAL MONITOR History: . LEFT FOOT PAIN . Comparison: August 04, 2019 FINDINGS: BONES: No acute fracture or dislocation. 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 Tiny bony fragment seen near to the fifth metatarsophalangeal joint unchanged fro m previous examination. JOINT SPACES: Narrowing of the proximal and distal interphalangeal joints. No tarsal coalition. SOFT TISSUES: Normal. Calcaneal spur. Ossification of the insertion of the tendo Achilles. IMPRESSION: No acute osseous abnormality left foot. 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 Reviewed, dictated and finalized at location A.
== END 2024-09-07 14:49 | disposition home or self-care (01) ==
PROVIDERS: PCP Internal Medicine; Visit Provider Nurse Practitioner Family
DX: M79.672 Pain in left foot (principal)
CPT/HCPCS: 73630

== ENCOUNTER 2024-09-15 15:26 | Outpatient (CLI) | payer OTHER, SELFPAY ==
--- NOTE | ~2024-09-15 | XR_ITS ---
XR_CERV2-3V_CR Ordering provider: Des Rosales MD History: . neck pain and left shoulder pain . Comparison: May 23, 2022 FINDINGS: VERTEBRAL BODIES: Normal height and alignment. No visible fracture or subluxation. The dens is intact . Degenerative changes. DISK SPACES: Narrowing of the disc C4-C5, C5-C6 and C6-C7. Multilevel facet joint disease. Multilevel uncovertebral joint osteoarthritic changes. PARASPINOUS SOFT TISSUES: No prevertebral soft tissue swelling. IMPRESSION: No acute osseous abnormality cervical spine. Multilevel degenerative disc. Reviewed, dictated and finalized at location A.
--- NOTE | ~2024-09-15 | XR_ITS ---
XR shoulder LT min 2V Ordering provider: Des Rosales MD History: . neck pain and left shoulder pain . Comparison: None. FINDINGS: BONES: No acute fracture or dislocation. JOINT SPACES: The acromioclavicular joint is normal. The glenohumeral joint is normal. SOFT TISSUES: Normal. IMPRESSION: No acute osseous abnormality left shoulder. Reviewed, dictated and finalized at location A.
== END 2024-09-15 15:27 | disposition home or self-care (01) ==
PROVIDERS: PCP Internal Medicine; Visit Provider Internal Medicine
DX: M25.512 Pain in left shoulder (principal); M50.30 Other cervical disc degeneration, unspecified cervical region
CPT/HCPCS: 72040; 73030

== ENCOUNTER 2024-09-26 10:35 | Outpatient (CLI) | payer OTHER, SELFPAY ==
--- NOTE | ~2024-09-26 | MR_ITS ---
EXAMINATION: MR cervical spine wo con DATE: 09/26/2024 11:17 INDICATION: Neck pain radiating down the left arm. TECHNIQUE: Magnetic resonance imaging (MRI) of the cervical spine was performed without intravenous c ontrast. Sequences included sagittal T2-weighted FSE, sagittal T2-weighted FS FSE, sagittal T1-weight ed FSE, axial MERGE, and axial T2-weighted FSE. COMPARISON: Cervical spine radiographs 09/15/2024 FINDINGS: There is 6 degrees levocurvature of cervicothoracic spine. Vertebral body heights are igor l. There is mildly decreased disc height at C5-C6. The following disc levels are specifically discuss ed: C2-C3: The disc does not extend beyond the endplate margin. There is no uncovertebral joint osteoarth ritis. There is mild bilateral facet joint osteoarthritis. There is no neural foraminal stenosis. The re is no central canal stenosis. C3-C4: There is a central extrusion. There is no uncovertebral joint osteoarthritis. There is mild ri ght and moderate left facet joint osteoarthritis. There is no neural foraminal stenosis. There is mil d central canal stenosis with ventral indentation of the spinal cord. C4-C5: There is a central extrusion. There is mild bilateral uncovertebral joint osteoarthritis. Ther e is mild bilateral facet joint osteoarthritis. There is no neural foraminal stenosis. There is mild central canal stenosis. C5-C6: The disc is bulging. There is severe bilateral uncovertebral joint osteoarthritis. There is mi ld bilateral facet joint osteoarthritis. There is mild bilateral neural foraminal stenosis. There is mild central canal stenosis with ventral indentation of the spinal cord. C6-C7: There is a central protrusion. There is mild right and moderate left uncovertebral joint osteo arthritis. There is mild bilateral facet joint osteoarthritis. There is moderate left neural foramina l stenosis. There is mild central canal stenosis. C7-T1: The disc does not extend beyond the endplate margin. There is no uncovertebral joint osteoarth ritis. There is moderate right and mild left facet joint osteoarthritis. There is mild right neural f oraminal stenosis. There is no central canal stenosis. IMPRESSION: 1. Moderate left neural foraminal stenosis at C6-C7. Otherwise mild cervical spondylosis. Reviewed, dictated and finalized at location A. 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 Moderate left neural foraminal stenosis at C6-C7. Otherwise mild cervical sp ondylosis.
== END 2024-09-26 10:36 | disposition home or self-care (01) ==
PROVIDERS: PCP Internal Medicine; Visit Provider Orthopaedic Surgery
DX: M54.12 Radiculopathy, cervical region (principal); M48.02 Spinal stenosis, cervical region; M43.02 Spondylolysis, cervical region
CPT/HCPCS: 72141

== ENCOUNTER 2024-09-28 12:59 | Outpatient (RCR) | payer OTHER, SELFPAY ==
--- NOTE | 2024-09-28 14:00 | PTOPEVAL1 ---
Assessment and note entered by Kimani Stein Evaluation Information Assessment Status Evaluation ICD-10 Condition Codes (PT) M54.13 Onset 09/01/24 Subjective Information Pt. reports that she started noticing numbness in the left arm around mid August. She reports that it than turned into pain. She underwent MRI that revealed stenosis at C6-C7 on the left. She reports that she has constant pain and numbness that can vary in intensity. She states that she is currently taking Gabapentin and muscle relaxers . She states that she has attempted steroids, but had no pain relief. She reports that notices that she also notices weakness in the left hand. She reports that pain will wake her frequently. She states that she continues to work, which consist of a lot of time on the computer. She reports that her goal is to reduce her left arm pain and neck pain. She reports she is right hand dominant. Reported Pain Level Pain Score 0,8: Self Report Assessment PT Clinical Summary Pt. is a 58 year old female who enters the clinic with cervical radiculopathy involving the C6-C7 level. She presents with impaired c-spine ROM, impaired postural awareness, pain, tricep weakness on the left and functional decline. Continued skilled PT is indicated in order to improve these areas to allow for improved comfort and efficiency with IADL's. Plan of Care Interventions Electrical Stimulation,Hot Pack/Cold Pack,Manual Therapy,Mechanical Traction,Neuro Re-education, Patient/Caregiver Educati,Therapeutic Activities, Therapeutic Exercise PT Services Indicated Yes Treatment Frequency and 2x/week x 10 visits Duration These treatments will address the objective and functional deficits as defined above. The patient will be advanced safely and appropriately in order for the patient to progress towards his/her prior level of function. Additional exercises will be introduced and as well as a comprehensive home exercise program upon discharge, if needed, ?to ensure carryover of functional gains achieved in the clinic. This treatment plan has been reviewed and agreement upon by the patient.
--- NOTE | 2024-09-28 14:01 | OPREHPOC ---
Outpatient Therapy Plan of Care This is a Multidisciplinary Plan of Care that may contain components documented by all disciplines (PT, OT, and ST.) PT Problem 1 PT Problem #1 Knowledge Deficit PT Goal 1 Goal / Goal Update Pt. will be independent with a HEP addressing postural awareness and strength Target Visit 2 PT Problem 2 PT Problem #2 Impaired Range of Motion PT Goal 1 Goal / Goal Update Pt. will present with 70 degrees left cervical rotation to improve visual field with driving Target Visit 10 PT Problem 3 PT Problem #3 Impaired Strength PT Goal 1 Goal / Goal Update Pt. will demonstrate 4/5 left tricep strength Target Visit 10 PT Problem 4 PT Problem #4 Impaired Functional Mobil PT Goal 1 Goal / Goal Update Pt. will reports being able to sleep through the night without pain disturbance Pt. will report reduction in medication use for pain Pt. will present with less than 10% limitation on the NDI indicating significant functional improvement. Target Visit 10
== END 2024-12-27 23:59 | disposition home or self-care (01) ==
LOC: CHSPT 12:59
PROVIDERS: Visit Provider Orthopaedic Surgery
DX: M54.12 Radiculopathy, cervical region (principal)
CPT/HCPCS: 97012; 97110; 97140; 97161

== ENCOUNTER 2024-10-19 07:17 | Outpatient (CLI) | payer OTHER, SELFPAY ==
--- NOTE | ~2024-10-19 | MM_ITS ---
EXAMINATION: MM screening verónica BI w silvia HISTORY: Screening TECHNIQUE: Craniocaudal and mediolateral oblique 3-D tomosynthesis images were obtained and synthetic 2-D images were generated. CAD analysis was submitted and interpreted. COMPARISON: Comparison to multiple prior studies sequentially, with oldest reviewed study dated 08/19. BREAST PARENCHYMAL COMPOSITION: Not dense: There are scattered areas of fibroglandular density. FINDINGS: There is no evidence of suspicious mass, calcification, or architectural distortion to sugg est malignancy in either breast. There has been no suspicious interval change. IMPRESSION: 1. No mammographic evidence of malignancy. 2. Recommend routine screening mammography in one year. BI-RADS Category 1: Negative Reviewed, dictated and finalized at location B. ALLMENT ACCOUNT CHECKER
== END 2024-10-19 07:18 | disposition home or self-care (01) ==
LOC: CHSIMG 07:18
PROVIDERS: PCP Internal Medicine; Visit Provider Obstetrics & Gynecology
DX: Z12.31 Encounter for screening mammogram for malignant neoplasm of breast (principal)
CPT/HCPCS: 77063; 77067

== ENCOUNTER 2024-11-26 07:13 | Outpatient (CLI) | payer OTHER, SELFPAY ==
[2024-11-26 07:33] LABS: Hematocrit 43.8 % (35.0-49.0); Hemoglobin 14.2 g/dL (12.0-15.0); Mean Corpuscular HGB Conc 32.4 g/dL (32-36); Mean Corpuscular Hemoglobin 25.7 pg (27.0-31.0); Mean Corpuscular Volume 79.2 fL (78.0-102.0); Mean Platelet Volume 9.6 fl (9.2-11.8); Platelet Count Result 222 K/mm3 (150-420); Red Blood Count 5.53 M/mm3 (4.20-5.40); Red Cell Distribution Width 14.2 % (11.6-14.4)
[2024-11-26 07:34] LABS: Add Urine Microscopic? NO; Appearance Urine Clear (Clear); Bilirubin Urine Negative (Negative); Blood Urine Negative (Negative); Color Urine Yellow (Yellow); Glucose Urine UA 3+ (Negative); Ketones Urine Negative (Negative); Leukocyte Esterase Ur Negative (Negative); Nitrate Urine Negative (Negative); Protein Urine Negative (Negative)
[2024-11-26 08:32] LABS: Alanine Aminotransferase 30 U/L (14-59); Albumin Level 3.5 g/dL (3.4-5.0); Alkaline Phosphatase 90 U/L (46-116); Anion Gap 8 mmol/L (4-12); Aspartate Amino Transferase 12 U/L (15-37); Bilirubin,Total 0.5 mg/dL (0.00-1.00); Blood Urea Nitrogen 21 mg/dL (7-18); Calcium 8.5 mg/dL (8.5-10.1); Carbon Dioxide 27 mmol/L (21-32); Chloride 105 mmol/L (98-108); Estimated Glomerular Filt Rate > 60; Glucose 94 mg/dL (70-99); Osmolality Calculated 293 mOsm/kg (285-295); Sodium 140 mmol/L (136-145); Total Protein 6.4 g/dL (6.4-8.2)
== END 2024-11-26 07:14 | disposition home or self-care (01) ==
PROVIDERS: PCP Internal Medicine; Visit Provider Internal Medicine
DX: Z01.818 Encounter for other preprocedural examination (principal); I10 Essential (primary) hypertension; E11.9 Type 2 diabetes mellitus without complications
CPT/HCPCS: 36415; 80053; 81003; 85027

== ENCOUNTER 2024-11-30 10:13 | Outpatient (CLI) | payer OTHER, SELFPAY ==
--- NOTE | 2024-11-30 10:19 | ECG_ITS ---
Test Date: 2024-11-30 10:58:02 Measurements Intervals [place] Rate: 89 P: 63 DE: 196 QRS: 42 QRSD: 102 T: 44 QT: 373 QTc: 456 Interpretive Statements SINUS RHYTHM INFERIOR MYOCARDIAL INFARCTION , OF INDETERMINATE AGE [40+ ms Q WAVE AND/OR ST/T ABNORMALITY IN II/aVF] No previous ECG available for comparison Electronically Signed On 11-30-2024 13:08:34 FLOWER STRIPPER by Lisa Peres M.D.
== END 2024-11-30 10:14 | disposition home or self-care (01) ==
LOC: CHSCARD 10:15
PROVIDERS: PCP Internal Medicine; Visit Provider Internal Medicine
DX: I48.92 Unspecified atrial flutter (principal); I21.9 Acute myocardial infarction, unspecified
CPT/HCPCS: 93005

== ENCOUNTER 2025-02-11 09:29 | Outpatient (RCR) | payer OTHER, SELFPAY ==
--- NOTE | 2025-02-11 10:03 | OPREHPOC ---
Outpatient Therapy Plan of Care This is a Multidisciplinary Plan of Care that may contain components documented by all disciplines (PT, OT, and ST.) PT Problem 1 PT Problem #1 Knowledge Deficit PT Goal 1 Goal / Goal Update 1. independent and compliant with HEP Target Visit 6 PT Problem 2 PT Problem #2 Pain PT Goal 1 Goal / Goal Update 1. patient to have no pain in the neck in the last week 2. patient to report return of all feeling in the L index and long fingers Target Visit 12 PT Problem 3 PT Problem #3 Impaired Range of Motion PT Goal 1 Goal / Goal Update 1. active cervical flexion and extension to 45 degrees or better each 2. active cervical side bending to 25 degrees or better each bilat 3. active cervical rotation to 60 degrees or better each bilat Target Visit 12 PT Problem 4 PT Problem #4 Impaired Strength PT Goal 1 Goal / Goal Update 1. improve cervical deep neck flexor strength to 4 +/5 or better 2. improve lower core strength to 4/5 or better 3. improve bilateral shoulder strength to 5/5 overall 4. improve L hand stamp redemption clerk strength to 70lbs or better 4. improve L wrist ext strength to 5/5 Target Visit 12 PT Problem 5 PT Problem #5 Impaired Functional Mobility PT Goal 1 Goal / Goal Update 1. NDI to display under 5% functional deficits 2. patient to report typing at normal speed and efficiency 3. patient to be able to lift and carry grandchildren safely 4. patient to return to walking and exercising on gazelle at home nightly. Target Visit 12
--- NOTE | 2025-02-11 10:03 | PTOPEVAL1 ---
Assessment and note entered by JT File, PT Evaluation Information Assessment Status Evaluation ICD-10 Condition Codes (PT) Cervicalgia M54.2,Encounter for other orthopedic aftercare Z47.89 Other ICD-10 Condition Codes ( anterior cervical fusion PT) Onset 01/21/25 Subjective Information patient reports she had cervical anterior fusion on 01/21/25. she was in a neck brace for 2 weeks. today is the first day she has driven. she reports she still has numbness in the index and long finger of the L hand, but the feeling has returned completely in the rest of the arm. she reports the incisions are still weaping a bit, and she was told to use steri-strips to hold closed. she reports prior to having issues with the neck, she was able to type on a computer quickly and easily, and lift and carry her grandchildren. she was also working out and walking nightly before her injury. Reported Pain Level Pain Score 0: Self Report Assessment PT Clinical Summary mrs. swanson is a pleasant 59 yo woman who presents to skilled PT services for evaluation and treatment following cervical anterior fusion. 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 continued skilled PT is indicated to improve patients objective/functional deficits and progress towards a return to her prior level functional activity performance/quality of life. Plan of Care Interventions Electrical Stimulation,Hot Pack/Cold Pack,Manual Therapy,Neuro Re-education,Patient/Caregiver Education,Therapeutic Activities,Therapeutic Exercise PT Services Indicated Yes Treatment Frequency and 3x weekly for 12 visits Duration These treatments will address the objective and functional deficits as defined above. The patient will be advanced safely and appropriately in order for the patient to progress towards his/her prior level of function. Additional exercises will be introduced and as well as a comprehensive home exercise program upon discharge, if needed, ?to ensure carryover of functional gains achieved in the clinic. This treatment plan has been reviewed and agreement upon by the patient.
--- NOTE | 2025-03-10 08:00 | OPREHPOC ---
Outpatient Therapy Plan of Care This is a Multidisciplinary Plan of Care that may contain components documented by all disciplines (PT, OT, and ST.) PT Problem 1 PT Problem #1 Knowledge Deficit PT Goal 1 Goal / Goal Update 1. independent and compliant with HEP Target Visit 6 Progress Met PT Problem 2 PT Problem #2 Pain PT Goal 1 Goal / Goal Update 1. patient to have no pain in the neck in the last week 2. patient to report return of all feeling in the L index and long fingers Target Visit 12 Progress Met PT Problem 3 PT Problem #3 Impaired Range of Motion PT Goal 1 Goal / Goal Update 1. active cervical flexion and extension to 45 degrees or better each -partially met 2. active cervical side bending to 25 degrees or better each bilat -met 3. active cervical rotation to 60 degrees or better each bilat Target Visit 12 Progress Partially Met PT Problem 4 PT Problem #4 Impaired Strength PT Goal 1 Goal / Goal Update 1. improve cervical deep neck flexor strength to 4 +/5 or better 2. improve lower core strength to 4/5 or better 3. improve bilateral shoulder strength to 5/5 overall 4. improve L hand roll cutter strength to 70lbs or better 4. improve L wrist ext strength to 5/5 Target Visit 12 Progress Not Met PT Problem 5 PT Problem #5 Impaired Functional Mobility PT Goal 1 Goal / Goal Update 1. NDI to display under 5% functional deficits - met 2. patient to report typing at normal speed and efficiency -met 3. patient to be able to lift and carry grandchildren safely -met 4. patient to return to walking and exercising on gazelle at home nightly. -not met Target Visit 12 Progress Partially Met
--- NOTE | 2025-03-10 08:00 | PTOPPROG ---
Assessment and note entered by Earnestine Champion, PT Evaluation Information Assessment Status Progress ICD-10 Condition Codes (PT) Cervicalgia M54.2,Encounter for other orthopedic aftercare Z47.89 Other ICD-10 Condition Codes ( anterior cervical fusion PT) Onset 01/21/25 Subjective Information Ainsley reports her numbness in the hand is improved and any numbness she does have is in the tip of her index finger and is intermittent. She denies any neck pain in the last week but does feel like her muscles are tight especially on the L side. She's getting back on her gazelle nightly. Lately she's been having a lot of heel pain which has prevented her from walking. Assessment PT Clinical Summary Mrs. Noble has attended 10 total skilled PT visits addressing cervical pain, ROM, and strength following a cervical fusion. She has been able to perform work activities and lifting her grandkids without difficulty and has started exercising at home again. 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 She would benefit from continued skilled PT to continue progressing toward goals. Plan of Care Interventions Electrical Stimulation,Hot Pack/Cold Pack,Manual Therapy,Neuro Re-education,Patient/Caregiver Education,Therapeutic Activities,Therapeutic Exercise,Self-Care/Home Management PT Services Indicated Yes Treatment Frequency and Continue with original POC Duration These treatments will address the objective and functional deficits as defined above. The patient will be advanced safely and appropriately in order for the patient to progress towards his/her prior level of function. Additional exercises will be introduced and as well as a comprehensive home exercise program upon discharge, if needed, ?to ensure carryover of functional gains achieved in the clinic. This treatment plan has been reviewed and agreement upon by the patient.
--- NOTE | 2025-03-18 08:18 | OPREHPOC ---
Outpatient Therapy Plan of Care This is a Multidisciplinary Plan of Care that may contain components documented by all disciplines (PT, OT, and ST.) PT Problem 1 PT Problem #1 Knowledge Deficit PT Goal 1 Goal / Goal Update 1. independent and compliant with HEP Target Visit 6 Progress Met PT Problem 2 PT Problem #2 Pain PT Goal 1 Goal / Goal Update 1. patient to have no pain in the neck in the last week 2. patient to report return of all feeling in the L index and long fingers Target Visit 12 Progress Met PT Problem 3 PT Problem #3 Impaired Range of Motion PT Goal 1 Goal / Goal Update 1. active cervical flexion and extension to 45 degrees or better each -met 2. active cervical side bending to 25 degrees or better each bilat -met 3. active cervical rotation to 60 degrees or better each bilat -met Target Visit 12 Progress Met PT Problem 4 PT Problem #4 Impaired Strength PT Goal 1 Goal / Goal Update 1. improve cervical deep neck flexor strength to 4 +/5 or better -met 2. improve lower core strength to 4/5 or better - met 3. improve bilateral shoulder strength to 5/5 overall -met 4. improve L hand receiver bulk system strength to 70lbs or better -not met 4. improve L wrist ext strength to 5/5 -met Target Visit 12 Progress Partially Met PT Problem 5 PT Problem #5 Impaired Functional Mobility PT Goal 1 Goal / Goal Update 1. NDI to display under 5% functional deficits - met 2. patient to report typing at normal speed and efficiency -met 3. patient to be able to lift and carry grandchildren safely -met 4. patient to return to walking and exercising on gazelle at home nightly. -met Target Visit 12 Progress Met
--- NOTE | 2025-03-18 08:18 | PTOPDC ---
Assessment and note entered by Adelina Blum, PT Evaluation Information Assessment Status Discharge ICD-10 Condition Codes (PT) Cervicalgia M54.2,Encounter for other orthopedic aftercare Z47.89 Other ICD-10 Condition Codes ( anterior cervical fusion PT) Onset 01/21/25 Subjective Information Ainsley reports she is doing well and has no pain. She has been back to normal activity and her numbness in the hand is improved and any numbness she does have is in the tip of her index finger and is intermittent. She has returned to walking when she can without heel pain. Reported Pain Level Pain Score 0: Self Report Assessment PT Clinical Summary Ainsley Noble has completed 12 skilled PT visits following a cervical fusion. She is reporting no pain in her neck, nearly resolved numbness and tingling, and return to all pre- surgical activities including using her gazelle machine. She demonstrates improved cervical AROM, improved UE strength, improved core baker strength, and improved functional abilities. She has met 80% of her goals and will be discharged to an independent [facility]. Plan of Care PT Services Indicated No
== END 2025-03-18 08:47 | disposition home or self-care (01) ==
LOC: CHSPT 09:29
PROVIDERS: Visit Provider Orthopaedic Surgery
DX: Z48.811 Encounter for surgical aftercare following surgery on the nervous system (principal)
CPT/HCPCS: 97110; 97112; 97140; 97161; 97750

== ENCOUNTER 2025-03-23 07:00 | Outpatient (CLI) | payer OTHER, SELFPAY ==
--- OUTSIDE RECORDS SUMMARY | 2025-03-23 07:04 | XMS_ITS | Clinical Summary ---
Author Organization [facility] [address] [place] [id number] Care Team Providers Care Grey Roll Man Name Role Phone Des Rosales MD Primary Care Provider [phone] Valeria Cano MD Unavailable [phone] Allergies Active Allergy Reactions Criticality Noted Date Comments Iodinated Contrast Media Unknown 06/02/2021 Medications Ozempic 1 mg/dose (4 mg/3 mL) pen injector injection Active cyanocobalamin (Vitamin B-12) 1,000 mcg/mL injection cyanocobalamin (vit B-12) 1,000 mcg/mL injection solution Active dapagliflozin (Farxiga) 10 mg tablet Farxiga 10 mg tablet Active famotidine (PEPCID) 20 mg tablet famotidine 20 mg tablet Active glipiZIDE XL (GLUCOTROL XL) 10 mg 24 hr tablet Take 10 mg by mouth 2 (two) times a day Active pravastatin (PRAVACHOL) 10 mg tablet pravastatin 10 mg tablet Active esomeprazole DR (NexIUM) 40 mg capsule esomeprazole magnesium 40 mg capsule,delayed release Active multivitamin with iron (HAIR VITAMINS ORAL) Take by mouth Active Active Problems Problem Noted Date Diagnosed Date 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 Cyst of ovary 06/02/2021 Diabetes mellitus 06/02/2021 Hypercholesterolemia 06/02/2021 Menopausal symptom 06/02/2021 Obesity 06/02/2021 Polyp of cervix 06/02/2021 Family history of ovarian cancer 06/02/2021 Fibroids 06/02/2021 Family history of breast cancer 06/02/2021 Family history of prostate cancer 06/02/2021 Immunizations Immunization Administration Dates Next Due Influenza, Trivalent, IM (MDV) 07/19/2012 Moderna SARS-CoV-2 Monovalent Vaccination (12+ Y RS) 12/12/2020,11/14/2020 Pneumococcal Polysaccharide PPV23 10/28/2012 Family History Medical History Relation Name Comments Lung cancer Brother 1 Mohsen history of smok ing Prostate cancer Brother 2 Tang Prostate cancer Brother 3 Augustine Pneumonia Brother 4 Bronson at age 3 No Known Problems Daughter Deepa Heart attack Father Stroke Maternal Grandfather Stroke Maternal Grandmother Cancer Maternal cousin age and spec ifics unknown gall bladder cancer Mother Cancer Mother's Brother 1 Colby age and s pecifics unknown Cancer Mother's Brother 2 age and s pecifics unknown Cancer Mother's Brother 3 age and s pecifcs unknown Ovarian cancer Mother's Sister 1 Ovarian cancer Mother's Sister 2 Kidney failure Paternal Grandmother young during a Diabetes Sister 1 Lyric Heart disease Sister 1 Lyric Breast cancer Sister 2 Jenny No Known Problems Son Gabriel Relation Name Status Comments Brother 1 Mohsen (Age 57) Brother 2 Tang Alive Brother 3 Augustine Alive Brother 4 Bronson (Age 3) Daughter Deepa Alive Father (Age 64) Maternal Grandfather (Age 60) Maternal Grandmother (Age 85) Maternal cousin (Age 45) Mother (Age 64) Mother's Brother 1 Colby Mother's Brother 2 Mother's Brother 3 Mother's Sister 1 (Age 70) Mother's Sister 2 (Age 69) Paternal Grandfather Paternal Grandmother Sister 1 Lyric Alive Sister 2 Jenny Alive Son Gabriel Alive Social History Tobacco Use Types Packs/Day Years Used Date Smoking Tobacco: Never Assessed Comments Unknown Sex and Gender Information Value Date Recorded Sex Assigned at Not on file 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 Gender Identity Not on file Sexual Orientation Not on file Obstetrics History Last Filed Vital Signs Vital Sign Reading Time Taken Comments Blood Pressure 137/85 06/02/2021 10:05 AM CDT Pulse 97 06/02/2021 10:05 AM CDT Temperature 36.6 C (97.9 F) 06/02/2021 10:05 AM CDT Respiratory Rate 20 06/02/2021 10:05 AM CDT Oxygen Saturation - - Inhaled Oxygen Concentration - - Weight 92.6 kg (204 lb 2.3 oz) 06/02/2021 10:05 AM CDT Height 170.7 cm (5' 7.21 ) 06/02/2021 10:05 AM C DT Body Mass Index 31.78 06/02/2021 10:05 AM CDT Plan of Treatment Health Maintenance Due Date Last Done Comments Albumin Creatinine Ratio, Urine 1963 Breast Cancer Screening-Mammogram 1963 Cervical Cancer Screening 1963 Colon Cancer Screening-Colonoscopy 1963 Depression Screening 1963 Hemoglobin A1C 1963 Hepatitis C Screening 1963 eGFR 1963 Dilated Eye Exam 1963 Foot Exam 1963 Lipid Panel 1963 DTaP/Tdap/Td Vaccine (1 - Tdap) 1974 Hepatitis B Screening 1981 Regular Well Visit/Exam 18-64 1981 Pneumococcal vaccine <65 (2 of 2 - PCV) 10/28/2013 1 12/29/2011 Zoster Vaccine (1 of 2) 2013 Covid-19 Vaccine (3 - season) 2024, 11/14/2020 Influenza Vaccine (#1) 2024 07/19/2012 Insurance [employer] [facility] [id number] Care Teams Grey Roll Man Relationship Specialty Start Date End Date Des Rosales MD PCP - General Internal Medicine 05/17/21 Valeria Cano MD Referring Physician Obstetrics and Gynecology 05/17/21
--- OUTSIDE RECORDS SUMMARY | 2025-03-23 07:04 | XMS_ITS | Referral Summary ---
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 Gender Identity Not on file Sexual Orientation Not on file Last Filed Vital Signs Vital Sign Reading [...] 06/02/2021 10:05 AM CDT Plan of Treatment Not on file Insurance [facility] H[facility]PPO Address: [place] [id number] [place] [id number] [facility] [id number] [facility] H[facility]PPO Address: [facility] [id number] [place] [address] Care Teams Boner Meat Relationship Specialty Start Date End Date Des Rosales MD PCP - General Internal Medicine 05/17/21 Valeria Cano MD Referring Physician Obstetrics and Gynecology 05/17/21
--- OUTSIDE RECORDS SUMMARY | 2025-03-23 07:04 | XMS_ITS | Clinical Summary ---
Author Organization [facility] Address [address] [place] [address] Care Team Providers Care [place] Name Role Phone Des Rosales MD Primary Care Provider [phone] Allergies Active Allergy Reactions Criticality Noted Date Comments Iodine Hives 10/09/2024 Medications No known medications Social History Tobacco Use Types Packs/Day Years Used Date Smoking Tobacco: Never Smokeless Tobacco: Never Tobacco Cessation:Counseling Given: Not Answered Comments Unknown Sex and Gender Information Value Date Recorded Sex Assigned at Not on file Legal Sex Female 5:40 PM CDT Gender Identity Not on file Sexual Orientation Not on file Last Filed Vital Signs Vital Sign Reading Time Taken Comments Blood Pressure 157/87 10/09/2024 6:00 PM PATTERNMAKER HAND Pulse 88 10/09/2024 6:00 PM PATTERNMAKER HAND Temperature 36.4 C (97.6 F) 10/09/2024 2:07 PM PATTERNMAKER HAND Respiratory Rate 17 10/09/2024 6:00 PM PATTERNMAKER HAND Oxygen Saturation 98% 10/09/2024 6:00 PM PATTERNMAKER HAND Inhaled Oxygen Concentration - - Weight 86.2 kg (190 lb) 10/09/2024 2:09 PM PATTERNMAKER HAND Height 175.3 cm (5' 9 ) 10/09/2024 2:09 PM PATTERNMAKER HAND Body Mass Index 28.06 10/09/2024 2:09 PM PATTERNMAKER HAND Plan of Treatment Health Maintenance Due Date Last Done Comments Cervical Cancer Screening Pa p Smear (Age 30 to 64) Every 3 Years 1963 Colorectal Cancer Screening Colonoscopy (10 Years) 1963 Annual Physical 1966 Hepatitis C 1981 Cervical Cancer Screening Pa p with HPV Testing (Age 30 to 64) Every 5 Years 1993 Cervical Cancer Screening wi th HPV 1993 Mammogram Screening 2003 COVID-19 Vaccine (2023-2 5 season) 2024 09/22/2021, 12/12/2020, 11/14/2020 DTaP, Tdap and Td Vaccines ( 2 - Td or Tdap) 12/03/2033 12/03/2023 RSV Immunization or 60+ Years (1 - 1-dose 75+ series) 2038 Pneumococcal Vaccine: 50+ Years Completed 08/27/2023, 10/28/2012 Zoster Vaccines Completed 03/05/2024, 09/26/2023 Meningococcal B Vaccine Aged Out No l onger eligible based on patient's age to complete this topic Meningococcal Vaccine Aged Out No john mary anne eligible based on patient's age to complete this topic RSV Immunizations Under 20 Months Aged Out No longer eligible b ased on patient's age to complete this topic Insurance [employer] Care Teams [place] Relationship Specialty Start Date End Date Des Rosales MD [address] [place] [address] PCP - General INTERNAL MEDICINE 10/09/24
[2025-03-23 08:25] LABS: Creatinine Urine 106.73 mg/dL (40-278); MALB Creatinine Ratio 12.1 mg/g (0-30); Microalbumin Urine Random < 13.0 mg/L
[2025-03-23 08:48] LABS: Alanine Aminotransferase 35 U/L (14-59); Albumin Level 3.5 g/dL (3.4-5.0); Alkaline Phosphatase 99 U/L (46-116); Anion Gap 7 mmol/L (4-12); Aspartate Amino Transferase 25 U/L (15-37); Bilirubin,Total 0.3 mg/dL (0.00-1.00); Blood Urea Nitrogen 21 mg/dL (7-18); Calcium 8.9 mg/dL (8.5-10.1); Carbon Dioxide 30 mmol/L (21-32); Chloride 102 mmol/L (98-108); Cholesterol 133 mg/dL (0-200); Estimated Glomerular Filt Rate > 60; Glucose 133 mg/dL (70-99); HDL Direct 49 mg/dL (40-60); LDL Cholesterol Calculated 43 mg/dL (<130); Osmolality Calculated 293 mOsm/kg (285-295); Potassium 4.2 mmol/L (3.5-5.1); Sodium 139 mmol/L (136-145); Thyroid Stimulating Hormone 3.18 uIU/mL (0.36-3.74); Total Protein 6.9 g/dL (6.4-8.2); Triglycerides 204 mg/dL (0-150); Vitamin B12 450 pg/mL (193-986)
[2025-03-25 04:48] LABS: Vitamin D 25 Hydroxy 33 ng/mL (30-100)
== END 2025-03-23 07:01 | disposition home or self-care (01) ==
LOC: CHSLAB 07:02
PROVIDERS: PCP Internal Medicine; Visit Provider Internal Medicine Endocrinology, Diabetes & Metabolism
DX: E11.65 Type 2 diabetes mellitus with hyperglycemia (principal); Z79.4 Long term (current) use of insulin; E04.2 Nontoxic multinodular goiter; E78.1 Pure hyperglyceridemia; E04.1 Nontoxic single thyroid nodule; R79.89 Other specified abnormal findings of blood chemistry
CPT/HCPCS: 36415; 80053; 80061; 82043; 82306; 82607; 84443

== ENCOUNTER 2025-04-05 07:14 | Outpatient (CLI) | payer OTHER, SELFPAY ==
--- NOTE | ~2025-04-05 | XR_ITS ---
XR ankle LT min 3V Ordering provider: Julio Michelle MD History: . LT HEEL BACK/POSTERIOR ANKLE,NKI . Comparison: None. FINDINGS: BONES: No acute fracture or dislocation. JOINT SPACES: The ankle mortise is normal. SOFT TISSUES: Normal. Calcaneal spur. Ossification of the insertion of the tendo Achilles. IMPRESSION: No acute osseous abnormality left ankle. Reviewed, dictated and finalized at location A.
--- OUTSIDE RECORDS SUMMARY | 2025-04-05 07:18 | XMS_ITS | Clinical Summary ---
Author Organization [facility] Address [address] [place] [address] Care Team Providers Care Shearing Machine Feeder Name Role Phone Des Rosales MD Primary Care Provider [phone] Allergies Active Allergy Reactions Criticality Noted Date [...] Comments Blood Pressure 157/87 10/09/2024 6:00 PM CERTIFIED MEDICAL CODING SPECIALIST Pulse 88 10/09/2024 6:00 PM CERTIFIED MEDICAL CODING SPECIALIST Temperature 36.4 C (97.6 F) 10/09/2024 2:07 PM CERTIFIED MEDICAL CODING SPECIALIST Respiratory Rate 17 10/09/2024 6:00 PM CERTIFIED MEDICAL CODING SPECIALIST Oxygen Saturation 98% 10/09/2024 6:00 PM CERTIFIED MEDICAL CODING SPECIALIST Inhaled Oxygen Concentration - - Weight 86.2 kg (190 lb) 10/09/2024 2:09 PM CERTIFIED MEDICAL CODING SPECIALIST Height 175.3 cm (5' 9 ) 10/09/2024 2:09 PM CERTIFIED MEDICAL CODING SPECIALIST Body Mass Index 28.06 10/09/2024 2:09 PM CERTIFIED MEDICAL CODING SPECIALIST Plan of Treatment Health Maintenance Due Date [...] topic Insurance [employer] Care Teams Shearing Machine Feeder Relationship Specialty Start Date End Date Des Rosales MD [address] [place] [address] PCP - General INTERNAL MEDICINE 10/09/24
--- OUTSIDE RECORDS SUMMARY | 2025-04-05 07:18 | XMS_ITS | Clinical Summary ---
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
--- OUTSIDE RECORDS SUMMARY | 2025-04-05 07:18 | XMS_ITS | Referral Summary ---
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
== END 2025-04-05 07:15 | disposition home or self-care (01) ==
LOC: CHSIMG 07:16
PROVIDERS: PCP Internal Medicine; Visit Provider Orthopaedic Surgery
DX: M25.572 Pain in left ankle and joints of left foot (principal)
CPT/HCPCS: 73610

== ENCOUNTER 2025-07-05 07:13 | Outpatient (CLI) | payer OTHER, SELFPAY ==
--- NOTE | ~2025-07-05 | US_ITS ---
EXAMINATION: US thyroid DATE: 07/05/2025 07:35 INDICATION: Nontoxic thyroid nodule TECHNIQUE: Multiple ultrasound images of the thyroid were obtained. COMPARISON: 01/24/2023 FINDINGS: The right thyroid lobe measures 4.4 x 1.6 x 1.9 cm. Within the right lobe of the thyroid gland is a 11.2 x 7.2 x 13.3 mm nodule Composition -mixed cystic and solid (1) Echogenicity - anechoic Shape - wider than tall Margin - smooth Echogenic foci - none. = TR 1, benign This nodule is decreased in size from previous examination dated 01/24/2023 when it measured 15 x 11 x 11 mm and had a larger solid component. Within the right lobe of the thyroid gland is an additional 5.0 x 6.0 mm nodule (no measurements were performed in the transverse position): Composition -spongiform Echogenicity -hyperechoic and isoechoic (1) Shape - wider than tall Margin - smooth Echogenic foci -punctate echogenic foci (3) = TR 4, moderately suspicious Greater than or equal to 1 cm, follow-up. Greater than or equal to 1.5 cm, FNA. This nodule is unchanged in size and morphology from previous examination dated 01/24/2023. The left thyroid lobe measures 4.1 x 1.7 x 2.1 cm. Within the left lobe of the thyroid gland is a 19 x 14 x 14 mm nodule: Composition -mixed cystic and solid (1) Echogenicity -isoechoic and hyperechoic (1) Shape - wider than tall Margin -ill-defined Echogenic foci - none. = TR2 Not suspicious No FNA, no follow-up This nodule is minimally increased in size when compared with previous examination dated 01/24/2023, mk goldstein corresponding to changes in positioning and technique. The morphology is unchanged. Within the left lobe of the thyroid gland is a 8.1 x 8.1 x 9.7mm nodule: Composition -solid or almost completely solid (2) Echogenicity -hypoechoic (2) Shape - wider than tall Margin -ill-defined Echogenic foci - none. = TR 4, moderately suspicious Greater than or equal to 1 cm, follow-up. Greater than or equal to 1.5 cm, FNA. This nodule was not designated as a distinct/separate nodule on the previous examination, rendering c omparison limited. The isthmus measures 6 mm in anterior to posterior dimension. There is otherwise normal echotexture and echogenicity throughout the remainder of the thyroid gland. No additional discrete nodules are identified. Normal vascular flow is present. IMPRESSION: Redemonstration of a TI-RADS 4 nodule within the right lobe of the thyroid gland measuring 6 mm in gr eatest dimension. Below the size threshold for FNA or follow-up as per TI-RADS criteria. Interval development of a TI-RADS 4 nodule within the left lobe of the thyroid gland measuring 9.7 mm in greatest dimension. This is below the size threshold for FNA or follow-up as per TI-RADS criteria . Otherwise, TR 1 and TR 2 nodules detected bilaterally, largely unchanged from prior. While follow-up is not recommended (as per TIRADs criteria) it may be performed, at the discretion of the referring clinician. Reviewed, dictated and finalized at location A. IMPRESSION: Redemonstration of a TI-RADS 4 nodule within the right lobe of the thyroid glan d measuring 6 mm in greatest dimension. Below the size threshold for FNA or fol low-up as per TI-RADS criteria. Interval development of a TI-RADS 4 nodule within the left lobe of the thyroid gland measuring 9.7 mm in greatest dimension. This is below the size threshold for FNA or follow-up as per TI-RADS criteria. Otherwise, TR 1 and TR 2 nodules detected bilaterally, largely unchanged from p rior. While follow-up is not recommended (as per TIRADs criteria) it may be performed , at the discretion of the referring clinician.
--- OUTSIDE RECORDS SUMMARY | 2025-07-05 07:17 | XMS_ITS | Clinical Summary ---
Author Organization [facility] [address] [place] [address] Care Team Providers Care Lead Android Developer Name Role Phone Des Rosales MD Primary Care Provider [phone] Valeria Cano MD Unavailable [phone] Allergies Active Allergy Reactions Criticality Noted Date [...] Sister 1 Lyric Breast cancer Sister 2 [place] No Known Problems Son Gabriel Relation Name [...] Grandmother Sister 1 Lyric Alive Sister 2 [place] Alive Son Gabriel Alive Social History Tobacco Use Types Packs/Day Years Used Date Smoking Tobacco: Never Assessed Comments Unknown Sex and Gender Information Value Date Recorded Sex Assigned at Not on file 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
--- OUTSIDE RECORDS SUMMARY | 2025-07-05 07:18 | XMS_ITS | Clinical Summary ---
Author Organization [facility] Address [facility] [place] [address] Care Team Providers Care Executive Vice President Of Sales Name Role Phone Des Rosales MD Primary Care Provider Allergies Active Allergy Reactions Criticality Noted Date [...] Comments Blood Pressure 157/87 10/09/2024 6:00 PM MASTER COASTWISE YACHT Pulse 88 10/09/2024 6:00 PM MASTER COASTWISE YACHT Temperature 36.4 C (97.6 F) 10/09/2024 2:07 PM MASTER COASTWISE YACHT Respiratory Rate 17 10/09/2024 6:00 PM MASTER COASTWISE YACHT Oxygen Saturation 98% 10/09/2024 6:00 PM MASTER COASTWISE YACHT Inhaled Oxygen Concentration - - Weight 86.2 kg (190 lb) 10/09/2024 2:09 PM MASTER COASTWISE YACHT Height 175.3 cm (5' 9) 10/09/2024 2:09 PM MASTER COASTWISE YACHT Body Mass Index 28.06 10/09/2024 2:09 PM MASTER COASTWISE YACHT Plan of Treatment Health Maintenance Due Date [...] topic Insurance [employer] Care Teams Executive Vice President Of Sales Relationship Specialty Start Date End Date Des Rosales MD [address] [place] [address] PCP - General INTERNAL MEDICINE 10/09/24
== END 2025-07-05 07:14 | disposition home or self-care (01) ==
LOC: CHSIMG 07:15
PROVIDERS: PCP Internal Medicine; Visit Provider Internal Medicine Endocrinology, Diabetes & Metabolism
DX: E04.1 Nontoxic single thyroid nodule (principal)
CPT/HCPCS: 76536

== ENCOUNTER 2025-10-28 07:33 | Outpatient (CLI) | payer OTHER, SELFPAY ==
--- NOTE | ~2025-10-28 | MM_ITS ---
EXAMINATION: MM screening verónica BI w silvia HISTORY: Screening. TECHNIQUE: Craniocaudal and mediolateral oblique 3-D tomosynthesis images were obtained and synthetic 2-D images were generated. CAD analysis was submitted and interpreted. COMPARISON: 2023, 2022, and 2021. BREAST PARENCHYMAL COMPOSITION: Not Dense: There are scattered areas of fibroglandular FINDINGS: There are 2 biopsy markers on the right. No suspicious masses are seen. There are no suspicious calcifications. No unexplained architectural distortion is seen. There are no skin or nipple abnormalities identified. There is no adenopathy seen on the images submitted. IMPRESSION: No mammographic evidence to suggest malignancy is seen. The patient may return to screening mammography as per ACR guidelines. BI-RADS 1 - Negative. Reviewed, dictated and finalized at location C. ER MILL TENDER
== END 2025-10-28 07:34 | disposition home or self-care (01) ==
LOC: CHSIMG 07:34
PROVIDERS: PCP Internal Medicine; Visit Provider Obstetrics & Gynecology
DX: Z12.31 Encounter for screening mammogram for malignant neoplasm of breast (principal)
CPT/HCPCS: 77063; 77067